=== PATIENT | male | born 1990 | race Caucasian/White ===

== ENCOUNTER 2023-10-08 23:18 | Emergency (ER) | payer BC, SELFPAY ==
[2023-10-09] MEDS ORDERED: Ketorolac Tromethamine 30 MG (1 mL) VIAL ONE (00:08)
[2023-10-09] MEDS ORDERED: Albuterol 2.5 MG (3 mL) NEB ONE (00:16)
[2023-10-09 00:53] LABS: SARS-CoV-2 NAA Rapid Test Not Detected (NotDetected)
== END 2023-10-09 01:09 | disposition home or self-care (01) ==
LOC: ERS 23:18
DX: J11.1 Influenza due to unidentified influenza virus with other respiratory manifestations (principal); F17.220 Nicotine dependence, chewing tobacco, uncomplicated
CPT/HCPCS: 94640; 96372; J1885; J7611